=== PATIENT | female | born 1970 | race Caucasian/White ===

== ENCOUNTER 2016-09-28 05:41 | Day surgery (SDC) | payer OTHER ==
--- NOTE | 2016-09-27 15:06 | PCM.HPANE ---
Patient Data Surgeon Admitting Provider: Attending Provider:Sebastian Enamorado DPM Primary Care Physician:Dmitry Lundberg MD Other Provider:Ruben Gonzalez Anesthesia Reason for Visit Right Ankle Fracture Ht/WT & BMI Height (Feet): 5 Height (Inches): 7.5 Weight (Kilograms): 94.574 Body Mass Index 32.00 Allergies Coded Allergies: Sulfa (Sulfonamide Antibiotics) (Verified Allergy, Severe, RASH, 09/26/16) amoxicillin (Verified Allergy, Severe, RASH, 09/26/16) cephalexin (Verified Allergy, Severe, RASH, 09/26/16) ciprofloxacin (Verified Adverse Reaction, Severe, gi upset, 09/26/16) Past Anesthesia History Anesthesia History: Denies:: Anesthesia Reactions, Malignant Hyperthermia Diabetes History Hx Diabetes?: No MRSA MRSA: No Medications Blood Thinner: Aspirin Hypertension Medication: No Reported Medications Ondansetron (Zofran)4 Mg Tablet4 Mg PO Q4H PRN For Nausea 09/26/[address] (Protonix)40 Mg Tablet.dr40 Mg PO DAILY 30 Days Ref 0 04/06/14 Discontinued Reported Medications Scopolamine (Transderm-Scop)1 Each Patch.td721 Each TD ONCE 01/02/16 Polyethylene Glycol 3350 (Miralax)17 Gm Powd.pack17 Gm PO DAILY 01/02/16 Docusate Sodium (Colace)100 Mg [id number] Mg PO BID PRN For Constipation Ref 0 01/02/16 Loratadine (Claritin)10 Mg Mbfpkpp92 Mg PO DAILY Ref 0 01/02/16 Discontinued Scripts Oxycodone (Roxicodone)5 Mg Tablet5 Mg PO Q4H PRN For Pain #40 TABLET Ref 0 Prov:Steve,Lito H DO 01/04/16 History History of ENT Problems?: Yes HEENT History: Positive for:: Sinus Problem (SEASONAL ALLERGIES) Denies:: Cataracts (S/ EYE PROCEDURES X3) Hx of Heart Problems?: Yes Cardiovascular History: Positive for:: Chest Pain (LIKELY R/T GERD) Hypertension (HX OF) Irregular Heartbeat (PT REPORTS "PALPITATIONS"-HOLTER MONITOR SHOWED OCC PVC) Thrombophlebitis (DVT RT POP. FOSSA FOLLOWING SPHINCTEROTOMY 2013) Denies:: Congestive Heart Failure Hx of Respiratory Problem?: Yes Respiratory History: Positive for:: Dyspnea (ZAMUDIO ) Denies:: Tuberculosis Use of C-PAP Machine Hx Neurologic Problems?: No Hx of GI Problems?: Yes Gastrointestinal History: Positive for:: Gall Bladder Disease (S/P MASHA) Gastroesphageal Reflux Liver Disease (HX OF ELEVATED LFT'S LIKELY R/T ETOH INTAKE) Rectal Bleeding (S/P LAT INT SPHINCTEROTOMY X2) Hx of Problems?: No Female Hx: Denies:: Currently (S/P C/S X2,BTL,REMPOVAL IUD/ ENDOMETRIAL ABLATION) Skin History: Positive for:: History Skin Disorders? (ROSACEA) Denies:: Pressure Ulcers Hx Musculoskeletal Problems?: Yes Musculoskeletal History: Positive for:: Musculoskeletal Trauma (S/P RT SHOULDER RPR C/OF LT KNEE PAIN FX RT ANKLE=CURRENT PROBLEM) Hx of Psycho/Social Problems?: No Hx Surgeries?: Yes (C/S X2,BTL,LAT INT SPHINCTEROTOMY,REMOVAL IUD/ENDOMETRIAL ABLATION) Hx Any Other Health Problems?: Yes Other History: Denies:: Cancer Endocrine Disease Hospitalization Thyroid Disease History Blood Transfusions: Denies:: Blood Transfuse Reaction Blood Transfusions Hx Diabetes: No Hx Alcohol Use: YesAlcoholic Drinks Per Day: 10/WEEKHx Substance Use: No Smoking Status: Never Smoker Have You Smoked inLast 12 mo: No Stop/Bang S-Snoring: Do You Snore Loudly: No T-Tired: feel tired, fatigued: No O-Obsered: Observed not breath: No P-Blood Pressure: treated: No B- Body Mass Index > 35 kg/m2: No A- Age over 50: No N- Neck Large Circumference: No G- Gender Male: No MARYBETH Total Score: 0 Risk Assessment Category Category 1A: Patient has history of documented sleep apnea, and HAS NOT received any narcotic, sedative or anesthesia administration during this stay. Category 1B: Patient has history of documented sleep apnea, and HAS received any narcotic , sedative or anesthesia administration during this stay Category 2: Patient has SUSPECTED Obstructive Sleep Apnea, and HAS received any narcotic , sedative or anesthesia administration during this stay. Category 3: Patient has SUSPECTED Obstructive Sleep Apnea and HAS NOT received narcotic, sedative or anesthesia administration during this stay. Category 4: Outpatient in Procedural Areas with known sleep apnea or who screen positive for High Risk via the STOP/BANG questionnaire. Exam Exam General Appearance: Alert, Oriented X3, Cooperative, No Acute Distress HEENT/AIRWAY: MP 2, Neck Movement (from), Mouth Opening (wnl) Lungs: Clear to Auscultation Heart: Exam Unremarkable Plan Impression Patient chart reviewed, patient interviewed and anesthestic plan with risks, benefits, and alternatives discussed, and informed consent obtained. NPO Status: 1900 01/02/16 ASA Physical Status: ASA2 Mod Systemic Disease Anesthetic Support Modalities: Alborn Scope Anesthetic Plan: GA Bene/Risks/Altern/Consents: Yes HP Complete Prior to Induction: Yes Juan Handy MD Sep 27, 2016 15:06
[~2016-09-28] VITALS: Ht 171.4 cm; Wt 94.6 kg
[2016-09-28] VITALS (7 sets, daily range): BP systolic 117–141; BP diastolic 75–87; PULSE 52–84; RESP 10–16; O2SAT 93–98
[~2016-09-28 05:41] MED LIST: ONDA4TAB6 PO; PANT40TA2 PO
[2016-09-28] MEDS ORDERED: Dexamethasone 4 mg/mL Inj ONE (05:42)
[2016-09-28] MEDS ORDERED: Propofol 10,000 mCg/mL 20 mL Inj ONE (05:42)
[2016-09-28] MEDS ORDERED: Ondansetron 2 mg/mL 2 mL Inj ONE (05:42)
[2016-09-28] MEDS ORDERED: Rocuronium 10 mg/mL 5 mL Inj ONE (05:42)
[2016-09-28] MEDS ORDERED: Neostigmine 1 mg/mL 5 mL Inj ONE (05:42)
[2016-09-28] MEDS ORDERED: fentaNYL-PF 50 mCg/mL 2 mL Inj ONE (05:42)
[2016-09-28] MEDS ORDERED: HYDROmorphone 2 mg/mL Inj ONE (05:42)
[2016-09-28] MEDS ORDERED: Glycopyrrolate 0.2 mg/mL 5 mL Inj ONE (05:42)
[2016-09-28] MEDS: Lactated Ringer's 1,000 ML IV SCH ×2 (05:57→08:00)
[2016-09-28] MEDS ORDERED: Clindamycin Inj 600 MG in IV Premix 1 EACH IV ONE (06:00)
[2016-09-28] MEDS ORDERED: HYDROmorphone 1 mg/mL Inj IVPUSH PRN (07:30)
[2016-09-28] MEDS ORDERED: EPHEDrine Sulfate 50 mg/mL Inj IVPUSH PRN (07:30)
[2016-09-28] MEDS ORDERED: Phenylephrine 10,000 mCg/mL Inj IVPUSH PRN (07:30)
[2016-09-28] MEDS ORDERED: Lactated Ringer's 1,000 ML IV SCH (07:30)
[2016-09-28] MEDS ORDERED: fentaNYL-PF 50 mCg/mL 2 mL Inj IVPUSH PRN (07:30)
[2016-09-28] MEDS ORDERED: hydrALAZINE 20 mg/mL Inj IVPUSH PRN (07:30)
[2016-09-28] MEDS ORDERED: Atropine 0.4 mg/mL Inj IVPUSH PRN (07:30)
[2016-09-28] MEDS ORDERED: Dexamethasone 4 mg/mL Inj IVPUSH PRN (07:30)
[2016-09-28] MEDS ORDERED: Labetalol 5 mg/mL 4 mL Inj IV PRN (07:30)
[2016-09-28] MEDS ORDERED: hydrOXYzine Inj 25 MG/1 mL SDV IM PRN (07:30)
[2016-09-28] MEDS ORDERED: Lactated Ringer's 500 ML IV PRN (07:30)
[2016-09-28] MEDS ORDERED: EPHEDrine Sulfate 50 mg/mL Inj IM PRN (07:30)
[2016-09-28] MEDS ORDERED: Ondansetron 2 mg/mL 2 mL Inj IVPUSH PRN (07:30)
[2016-09-28] MEDS ORDERED: Bupivacaine-MPF 0.5% W/EPI 30 mL Inj INJ ONE (08:00)
[2016-09-28] MEDS ORDERED: oxyCODONE-Acetamin 5-325 mg Tablet PO PRN (09:50)
--- NOTE | 2016-09-28 09:56 | PCM.PODPO ---
Podiatry Operative Report Date of Service: Sep 28, 2016 Date of Service Sep 28, 2016 Pre Operative Diagnosis Displaced right ankle fracture with syndesmotic rupture Post Operative Diagnosis Same as preoperative diagnoses Procedure Open reduction internal fixation right ankle with syndesmotic stabilization Surgeon Surgeon: Sebastian Enamorado DPM Assistants: None Indication for Procedure Syndesmotic injury with right ankle fracture and displacement of the ankle Findings Moderate injury of the syndesmosis with ankle instability and medial clear space Details of Procedure Patient was identified in the preoperative holding area. All preoperative comorbidities and allergies were identified and thoroughly discussed. The patient was transported into the operating room and placed on the operating room table in the normal supine position. The patient was then prepped and draped in the normal aseptic technique. Attention was first paid the lateral aspect of the right lower extremity. A #10 blade was utilized to make an approximately 8 cm incision directly overlying the distal lateral fibula and lateral malleolus. Once through the initial layer of skin all subcutaneous neurovascular structures were identified and retracted out of the surgical field. Sharp dissection was carried down through subcutaneous tissue directly to bone and all subcutaneous tissue was reflected both anteriorly and posteriorly exposing the lateral wall of the distal fibula and the lateral malleolus. A spiral type fracture was noted at the level of the ankle joint and was in acceptable alignment. Intraoperative C-arm x-ray confirmed presence of a medial clear space and widening of the ankle mortise. A curet was utilized to debride hematogenous tissue from the fracture site. This wound was not grossly possible large amounts of normal saline. A 3.5 mm lag screw was then placed in the normal technique across the fracture site. Intraoperative C- arm x-ray revealed that this lag screw extended slightly distal and would likely impede distal internal fixation into the lateral malleolus. A second 3.5 mm lag screw was placed in the more proximal position across the fracture site in the normal lag technique. The previously thrown distal lag screw was then removed. Intraoperative C-arm x-ray revealed maintained reduction of the fracture site. Direct visualization revealed adequate compression of the fracture. An Arthrex 3.5 mm locking plate was then inserted in the normal surgical fashion utilizing intraoperative C-arm x-ray on the lateral aspect of the fibula slightly posterior to the midline. The plate was fixated utilizing locking hardware. A K wire was then inserted from the distal fibula through the tibia with approximately 15 anterior angulation. Intraoperative C-arm x- ray was then utilized to verify K wire positioning and a 3.5 mm drill bit was then utilized to drill across the fibula through the distal tibia exiting through the medial cortices of the distal tibia. An Arthrex tight rope was then inserted and the syndesmosis was reduced in the normal surgical fashion utilizing a large syndesmotic clamp. Following reduction of the syndesmosis and optimal placement of the tight rope the clamp was removed and the ankle was placed through stressed range of motion. No widening of the ankle mortise was noted. The wound was again closely flushed with large amounts of normal saline. Deep closure was performed utilizing number 2. 0 Vicryl subcutaneous closure was performed utilizing number 3. 0 Vicryl and skin closure was performed utilizing a 3. 0 Prolene. The medial incision was also closed utilizing number 3. 0 Prolene. A postoperative block consisting of 20 mL of half percent Marcaine with epinephrine was performed to the right ankle and proximal fibular shaft. The wound was then dressed with Adaptic sterile 4 x 4 gauze Kerlix and the patient was placed into a mildly compressive Corea compression dressing with a posterior splint. No complications occurred during this procedure the patient was awoken by anesthesia and transported out of the operating room. Grafts, Implants: Implants-See Implant Record Complications There were no periprocedural complications identified. Condition Stable Anesthetic Administered: GA Catheters: None Output, Estimated Blood Loss: 20 Blood Admin during surgery: No Surgical Cast or Splint: Well-padded Short Leg Splint Surgical Specimen Removed: No Specimen sent to Pathology: No Post Operative Plan Ice and elevate right lower extremity Nonweightbearing right lower extremity Contact office with any questions or concerns regarding care Discharged to home when stable Follow-up October 03 in [place] office Keep dressing clean dry and intact Sebastian Enamorado DPM Sep 28, 2016 09:56
--- NOTE | 2016-09-28 10:32 | PCM.ANEP1 ---
Post Anesthesia Phase 1 PACU Phase 1 Assessment Date of Service: Sep 28, 2016 Vital Signs Vital Signs Date Time Temp Pulse Resp B/P Pulse Ox O2 Delivery O2 Flow Rate FiO2 09/28/16 10:05 52 10 117/75 98 Nasal Cannula 2 09/28/16 10:00 59 12 125/82 97 Nasal Cannula 2 09/28/16 09:55 71 12 130/87 97 Nasal Cannula 2 09/28/16 09:45 37.3 84 16 136/85 93 Room Air 09/28/16 05:57 36.4 76 16 123/82 95 Room Air Anesthetic Administered: GA Level of Alertness: Awake, talking MILLS's with Equal Strength: Yes Pain: No Nausea or Vomiting: No Oxygen Delivery: Room Air Lungs: Normal Air Movement Juan Handy MD Sep 28, 2016 10:31
--- NOTE | 2016-09-28 16:08 | PCM.ANEP2 ---
Post Anesthesia Evaluation ASA/CMS Post Anesthesia VS in Patient's Normal Range?: Yes Resp Stable; Airway Patent?: Yes CV Function & Hydration Stable: Yes Mental Status Recovered?: Yes Pain control Satisfactory?: Yes N/V Control Satisfactory?: Yes Juan Handy MD Sep 28, 2016 16:08
== END 2016-09-28 23:59 | disposition home or self-care (01) ==
LOC: SAS 05:41
PROVIDERS: ATTEND Podiatrist Foot & Ankle Surgery
PROC: 0QSJ04Z Reposition Right Fibula with Internal Fixation Device, Open Approach (ICD-10-PCS; principal; 2016-09-28 07:15)
DX: S82.831A Other fracture of upper and lower end of right fibula, initial encounter for closed fracture (principal); K21.9 Gastro-esophageal reflux disease without esophagitis; S93.431A Sprain of tibiofibular ligament of right ankle, initial encounter; X50.0XXA Overexertion from strenuous movement or load, initial encounter
CPT/HCPCS: 27792; 76001; C1713; J1100; J1170; J2250; J2405; J2710; J7120